=== PATIENT | male | born 1945 | race Caucasian/White ===

== ENCOUNTER 2017-02-19 23:37 | Emergency (ER) | payer MEDICARE, OTHER ==
[~2017-02-19 23:37] MED LIST: ARTHROTEC; ASPI81 PO; CARD240C6 PO; CARD2TAB PO; OYST500T77 PO
[2017-02-19 23:38] VITALS: BP 185/99; PULSE 75; RESP 18; TEMP 98.4; O2SAT 97
[2017-02-20] MEDS ORDERED: SODIUM CHLORIDE 0.9% FLUSH 10 ML FLUSH IVF PRN (00:30)
[2017-02-20 00:42] LABS: AUTOMATED NEUTROPHIL # 3.2 TH/MM3 (1.8-7.7); BASOPHIL % 0.9 % (0.0-2.0); EOSINOPHIL # 0.1 TH/MM3 (0-0.4); EOSINOPHIL % 2.1 % (0.0-4.0); HEMATOCRIT 41.9 % (39.0-51.0); HEMO FLAGS DIFF FINAL; LYMPH % 15.6 % (9.0-44.0); LYMPHOCYTE # 0.7 TH/MM3 (1.0-4.8); MEAN CELL VOLUME 99.7 FL (80.0-100.0); MEAN CORPUSCULAR HEMOGLOBIN 34.3 PG (27.0-34.0); MEAN CORPUSCULAR HGB CONC 34.4 % (32.0-36.0); MONO % 13.6 % (0.0-8.0); NEUT % 67.8 % (16.0-70.0); PLATELET COUNT 131 TH/MM3 (150-450); RED CELL DISTRIBUTION WIDTH 12.6 % (11.6-17.2); WHITE BLOOD COUNT 4.7 TH/MM3 (4.0-11.0)
--- NOTE | 2017-02-20 01:03 | RADRPT ---
EXAM DATE/TIME: 02/20/2017 00:47 [place] COMPARISON: No previous studies available for comparison. INDICATIONS : Congestion. Shortness of breath. MEDICAL HISTORY : Bronchitis. SURGICAL HISTORY : Loop recorder. ENCOUNTER: Initial ACUITY: 3 days PAIN SCORE: 0/10 LOCATION: Bilateral chest FINDINGS: PA and lateral views of the chest demonstrate the lungs to be symmetrically aerated without evidence of mass, infiltrate or effusion. The cardiomediastinal contours are unremarkable. Osseous structure s are intact.CONCLUSION: No acute disease. There is no evidence of pneumonia. Lionel Rodriguez MD on February 20, 2017 at 1:01 Board Certified Radiologist. This report was verified electronically.
[2017-02-20] MEDS ORDERED: PRED20 PO (01:16)
[2017-02-20] MEDS ORDERED: ALBUAER3 INH (01:16)
--- NOTE | 2017-02-20 01:16 | PD ---
HPI Chief Complaint: Respiratory Symptoms Time Seen by Provider: 00:24 Travel History International Travel<30 days: No Contact w/Intl Traveler<30days: No History of Present Illness HPI Patient is a 71-year-old male who presents emergency department for evaluation of cough and congestion for the past few weeks. Patient states been gradually worsening. He is visiting from [place]. Denies any fever denies abdominal pain denies any chest pain or shortness of breath. He states that he was diagnosed bronchitis and placed on azithromycin which she has finished and that usually knocks out is bronchitis but does not this time. He denies a history of smoking. States symptoms began gradually worsening. PFSH Past Medical History Arthritis: Yes Heart Rhythm Problems: Yes (A-FIB, ABLATION) Cardiovascular Problems: Yes Medical other: Yes (SEPSIS) Past Surgical History Cardiac Surgery: Yes (ABLATION) Social History Alcohol Use: Yes Tobacco Use: No (QUIT 1980) Substance Use: No Allergies-Medications (Allergen,Severity, Reaction): Coded Allergies: No Known Allergies (Verified , 02/20/17) Reported Meds & Prescriptions Reported Meds & Active Scripts Active Codeine/Guaifenesin 100-10 mg/5Ml (Guaifenesin-Codeine) 1 Quin Quin 5 Ml PO Q8HR PRN Proair Hfa 8.5 GM Inh (Albuterol Sulfate) 90 Mcg/Act Aer 1 Puff INH Q4H PRN 108 mcg/actuation Prednisone 20 Mg Tab 60 Mg PO DAILY 5 Days Reported Cardura 2 mg (Doxazosin Mesylate) 2 Mg Tab 2 Mg PO HS Cardizem Cd (Diltiazem HCl) 240 Mg Cap 240 Mg PO DAILY [Arthrotec] Calcium 500 Mg Tab 500 Mg PO Aspirin 81 Mg Tab 81 Mg PO DAILY Review of Systems Except as stated in HPI: all other systems reviewed are Neg Physical Exam Narrative GENERAL: Well-developed well-nourished, quite pleasant, no obvious distress. Exhibited occasional dry cough. SKIN: Focused skin assessment warm/dry. HEAD: Atraumatic. Normocephalic. EYES: Pupils equal and round. No scleral icterus. No injection or drainage. ENT: No nasal bleeding or discharge. Mucous membranes pink and moist. TMs clear bilaterally. Oropharynx clear and moist. NECK: Trachea midline. No JVD. CARDIOVASCULAR: Regular rate and rhythm. No murmur appreciated. RESPIRATORY: No accessory muscle use. Scant occasional wheezes heard. Breath sounds equal bilaterally. GASTROINTESTINAL: Abdomen soft, non-tender, nondistended. Hepatic and splenic margins not palpable. MUSCULOSKELETAL: No obvious deformities. No clubbing. No cyanosis. No edema. NEUROLOGICAL: Awake and alert. No obvious cranial nerve deficits. Motor grossly within normal limits. Normal speech. PSYCHIATRIC: Appropriate mood and affect; insight and judgment normal. Data Data Last Documented VS Vital Signs Date Time Temp Pulse Resp B/P Pulse Ox O2 Delivery O2 Flow Rate FiO2 02/20/17 00:17 67 96 Room Air 02/19/17 23:38 98.4 18 185/99 Orders Electrocardiogram (02/19/17 ) Troponin I (02/20/17 00:24) Ecg Monitoring (02/20/17 00:24) Iv Access Insert/Monitor (02/20/17 00:24) Oximetry (02/20/17 00:24) Oxygen Administration (02/20/17 00:24) Sodium Chloride 0.9% Flush (Ns Flush) (02/20/17 00:30) Chest, Pa & Lat (02/20/17 00:24) Complete Blood Count With Diff (02/20/17 00:29) Labs Laboratory Tests Test 02/20/17 00:35 White Blood Count 4.7 TH/MM3 Red Blood Count 4.20 MIL/MM3 Hemoglobin 14.4 GM/DL Hematocrit 41.9 % Mean Corpuscular Volume 99.7 FL Mean Corpuscular Hemoglobin 34.3 PG Mean Corpuscular Hemoglobin 34.4 % Concent Red Cell Distribution Width 12.6 % Platelet Count 131 TH/MM3 Mean Platelet Volume 7.8 FL Neutrophils (%) (Auto) 67.8 % Lymphocytes (%) (Auto) 15.6 % Monocytes (%) (Auto) 13.6 % Eosinophils (%) (Auto) 2.1 % Basophils (%) (Auto) 0.9 % Neutrophils # (Auto) 3.2 TH/MM3 Lymphocytes # (Auto) 0.7 TH/MM3 Monocytes # (Auto) 0.6 TH/MM3 Eosinophils # (Auto) 0.1 TH/MM3 Basophils # (Auto) 0.0 TH/MM3 CBC Comment DIFF FINAL Differential Comment Troponin I LESS THAN 0.02 NG/ML MDM Medical Decision Making Medical Screen Exam Complete: Yes Emergency Medical Condition: Yes Interpretation(s) EKG shows junctional rhythm as evident by embers P waves in lead 2, normal axis and early R-wave transition. Right bundle-branch block, evidence for LVH. No concerning ST T changes. This an abnormal EKG. Differential Diagnosis Bronchitis, URI, pneumonia, ACS highly unlikely. Narrative Course Patient was roomed emergency department, he appears quite well and in no distress. Chest x-ray is reassuring as well as basic labs. The patient is probably suffering from a viral bronchitis and recommended prednisone trial. His EKG is abnormal and conduction. Patient states he has a history of atrial fibrillation with an ablation. I think this would adequately explain his conduction abnormality. I discussed the results with him and I think that he is stable for discharge with follow-up with primary care physician. He states he is returning to his home state in a few days and will call for an appointment. Discussed return to ED criteria. Diagnosis Primary Impression: Bronchitis Med/Other Pt SpecificInfo: Prescription(s) given Scripts Guaifenesin-Codeine (Codeine/Guaifenesin 100-10 mg/5Ml)1 Quin Sol5 Ml PO Q8HR PRN (COUGH) #100 ML Ref 0 Prov:Noel Farrlel MD 02/20/17 Albuterol 8.5 GM Inh (Proair Hfa 8.5 GM Inh)90 Mcg/Act Aer1 Puff INH Q4H PRN ( SHORTNESS OF BREATH) #1 INHALER Ref 0 108 mcg/actuation Prov:Noel Farrell MD 02/20/17 Prednisone 20 Mg Tab60 Mg PO DAILY 5 Days Ref 0 Prov:Noel Farrell MD 02/20/17 Disposition: 01 DISCHARGE HOME Condition: Stable Noel Farrell MD February 20, 2017 01:16
[2017-02-20] MEDS ORDERED: GUAI1SOL3 PO (01:23)
--- NOTE | 2017-02-20 13:45 | EKG ---
Date Performed: 02/19/2017 Time Performed: 23:51:33 PTAGE: 71 years EKG: JUNCTIONAL RHYTHM RIGHT BUNDLE BRANCH BLOCK ABNORMAL ECG NO PREVIOUS TRACING DOCTOR: Gaurav Blum Interpretating Date/Time 02/20/2017 13:40:51
== END 2017-02-20 02:47 | disposition home or self-care (01) ==
LOC: NEPC 23:37
DX: J40 Bronchitis, not specified as acute or chronic (principal); R94.31 Abnormal electrocardiogram [ECG] [EKG]; Z86.79 Personal history of other diseases of the circulatory system; Z87.39 Personal history of other diseases of the musculoskeletal system and connective tissue
CPT/HCPCS: 71020; 84484; 85025; 93005